=== PATIENT | male | born 1975 | race African-American/Black ===

== ENCOUNTER 2019-04-10 10:11 | Emergency (ER) | payer BC ==
[~2019-04-10] VITALS: Ht 177.8 cm; Wt 91.0 kg
[~2019-04-10 10:11] MED LIST: IBUP-1008
[2019-04-10] MEDS ORDERED: AZITHROMYCIN 500 MG TABLET PO ONE (11:00)
[2019-04-10] MEDS ORDERED: CEFTRIAXONE SODIUM 250 MG/VIAL IM ONE (11:00)
[2019-04-10] MEDS ORDERED: LIDOCAINE HCL 1% 20ML VIAL (Pyxis) INJ INFIL ONE (11:00)
[2019-04-10 12:00] VITALS: BP 130/90
[2019-04-10 12:29] LABS: CLARITY URINE CLEAR (CLEAR); COLOR URINE YELLOW (YELLOW); KETONES URINE NEGATIVE (NEGATIVE); LEUKOCYTE ESTERASE URINE TRACE (NEGATIVE); NITRITE URINE NEGATIVE (NEGATIVE); OCCULT BLOOD URINE NEGATIVE (NEGATIVE); PROTEIN URINE NEGATIVE (NEGATIVE); SPECIFIC GRAVITY URINE 1.012 (1.005-1.030)
[2019-04-10] MEDS ORDERED: METRONIDAZOLE 500MG TABLET PO ONE (12:45)
[2019-04-13 17:06] LABS: CHLAMYDIA TRACHOMATIS NAA Negative (Negative); NEISSERIA GONORRHOEAE NAA Negative (Negative)
== END 2019-04-10 12:58 | disposition home or self-care (01) ==
LOC: ER 10:11
DX: Z20.2 Contact with and (suspected) exposure to infections with a predominantly sexual mode of transmission (principal); I10 Essential (primary) hypertension; F17.200 Nicotine dependence, unspecified, uncomplicated
CPT/HCPCS: 81003; 87491; 87591; 96372; 99283; J0696; J3490